=== PATIENT | female | born 2000 | race Two or more races ===

== ENCOUNTER 2020-11-27 16:47 | Emergency (ER) | payer MEDICAID, OTHER ==
[~2020-11-27] VITALS: Ht 157.5 cm; Wt 54.4 kg
[2020-11-27 16:56] VITALS: BP 165/104
== END 2020-11-27 18:27 | disposition left against medical advice (07) ==
LOC: ER 16:47
DX: H00.013 Hordeolum externum right eye, unspecified eyelid (principal); Z53.21 Procedure and treatment not carried out due to patient leaving prior to being seen by health care provider